=== PATIENT | male | born 1995 | race Caucasian/White ===

== ENCOUNTER 2016-10-17 12:54 | Emergency (ER) | payer SELFPAY ==
[2016-10-17 13:53] LABS: Hemoglobin 17.7 gm/dL (13.5-18.0); Mean Cell Volume 85.1 fl (78-100); Mean Corpuscular Hemoglobin 30.7 pg (27-31); Mean Corpuscular Hgb Conc 36.1 g/dl (32-36); Mean Platelet Volume 9.2 fl (6.0-9.5); Neutrophil # 10.3 K/mm3 (1.3-6.0); Neutrophil % 86.5 % (42-75.0); Platelet Count 304 K/mm3 (150-450); Red Blood Count 5.76 M/mm3 (4.7-6.0); Red Cell Distribution Width 12.3 % (11.5-14.0); White Blood Count 11.9 K/mm3 (4.0-10.5)
[2016-10-17 14:04] LABS: BUN/Creatinine Ratio 7.7 (9.0-21.6); Bilirubin, Total 0.9 mg/dL (0.0-1.1); Ca. Corrected For Albumin 8.8 mg/dL (8.4-10.2); Calcium * 10.7 mg/dL (7.9-10.9); Carbon Dioxide 23.1 mmol/L (24-32.6); Potassium 5.1 mmol/L (3.4-4.6); Total Protein 10.6 gm/dL (6.2-8.2)
[2016-10-17] MEDS ORDERED: NORMAL SALINE 1,000 ML IV ONE ×4 (14:22→15:39)
[2016-10-17] MEDS ORDERED: ONDANSETRON HCL/PF 2 MG/ML VIAL IV ONE (14:26)
--- NOTE | 2016-10-17 14:34 | ERNOTE ---
Medical Problem HPI - Narrative Date of Service: 10/17/16 - General Chief Complaint: General Assessment Time Seen by Provider: 10/17/16 14:22 Source: patient, family, RN notes reviewed Exam Limitations: no limitations - Immun/Allergies/Home Medications Immunizations: IMMUNIZATION HX Immunizations Up to Date No History of Influenza Vaccine No Hx Pneumococcal Vaccination No Allergies/Adverse Reactions: Allergies No Known Allergies Allergy (Unverified 10/17/16 13:17) Home Medications: HOME MEDICATIONS NK [No Home Medication] 10/17/16 [Last Taken Unknown] - History of Present History Narrative: 21 y/o male ambulatory to the ED for vomiting and weakness. 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 He then began having nausea and vomiting last evening. He has continued to vomit throughout the day today. He reports passing out at work yesterday. He is also having generalized muscle aches. Date (Duration): 10/16/16 Review of Systems - Review of Systems Constitutional: Present: fatigue, malaise. Absent: fever, chills EYE: Present: no symptoms reported ENT: Present: no symptoms reported Respiratory: Absent: shortness of breath, cough Cardiology: Present: syncope. Absent: chest pain Gastrointestinal/Abdominal: Present: nausea, vomiting. Absent: diarrhea, constipation Genitourinary: Present: decreased urinary output. Absent: dysuria, hematuria Musculoskeletal: Present: muscle pain. Absent: joint pain Skin: Absent: rash, lesions, change in color Neurological: Present: dizziness/light-headedness. Absent: headache Endocrine: Present: no symptoms reported Hematologic/Lymphatic: Present: no symptoms reported Psych: Present: no symptoms reported - Patient's Past Medical History Patient History - Medical: No pertinent hx Patient History - Cardiac/Respiratory: No pertinent hx Patient History - Cancer: No Hx of Cancer Patient History - Surgical Procedures: No surgical history Patient History - Other: None - Social History Living Situations: home Abuse History: No History of abuse Psych History: No pertinent hx Smoking Status: Current every day smoker Have you smoked in the past 12 months: Yes Do you dip or chew tobacco: No Alcohol Use: none Drug Use: marijuana - Immunizations Immunizations Up to Date: No Hx Pneumococcal Vaccination: No History of Influenza Vaccine: No Physical Exam - Physical Exam General Appearance: Present: wd/wn, alert, moderate distress Eye Exam: Normal inspection: bilateral, PERRL: bilateral Ears, Nose, Throat: Present: normal ENT inspection Neck: Present: normal inspection, nontender, supple, full range of motion Respiratory: Present: no respiratory distress, normal breath sounds, no accessory muscle use, lungs clear Cardiovascular/Chest: Present: no murmur, normal peripheral pulses, tachycardia Gastrointestinal/Abdominal: Present: normal bowel sounds, nondistended, soft, tenderness - diffuse Back Exam: Present: normal range of motion, no vertebral tenderness, CVA tenderness (R). Absent: CVA tenderness (L) Extremity Exam: Present: normal inspection, normal range of motion, no edema Neurological Exam: Present: alert, oriented, normal mood/affect, no motor/ sensory deficits Skin Exam: Present: normal color, warm/dry ED Progress - Results and Orders Patient's Lab Results:: I have reviewed the patient's lab results. - Vital Signs Patient's Vital Signs:: I have reviewed the patient's vital signs. Vital Signs: Vital Signs 10/17/16 13:12 Temperature 36.7 C Pulse Rate 105 H Respiratory 18 Rate Blood Pressure 134/85 O2 Sat by Pulse 100 Oximetry - Progress/Reassessment Chief Complaint: General Assessment Progress:: Improved Plan - Plan Plan: Creatinine improved after 4 liters of IV NS. No further vomiting. Patient is up and about in room. Verbalizes feeling much better. Has voided without difficulty. Patient's PCP is in [place], states he will f/u there on Thursday to recheck his labs but if unable to get an appointment he will return here. Departure - Departure Clinical Impression: Dehydration, Acute kidney injury Disposition: Home Follow Up Needed Condition: Stable Instructions: Dehydration, Adult, [id number], Form - Excuse from Work, School , or Physical Activity Additional Instructions: Push fluids Rest and stay out of the heat this Return for vomiting, if you are not urinating, or for other concerns Follow up with your doctor on Thursday, or return here to recheck your labs
[2016-10-17] MEDS ORDERED: ONDANSETRON HCL/PF 2 MG/ML VIAL ONE (14:39)
[2016-10-17] MEDS ORDERED: ACETAMINOPHEN 325 MG TABLET PO ONE (15:48)
[2016-10-17] MEDS ORDERED: ACETAMINOPHEN 325 MG TABLET ONE (15:50)
[2016-10-17 16:36] VITALS: BP 125/75
[2016-10-17 17:36] LABS: Anion Gap 17.7 mmol/L (6.8-13.8); BUN/Creatinine Ratio 10.6 (9.0-21.6); Calcium * 8.6 mg/dL (7.9-10.9); Carbon Dioxide 22.9 mmol/L (24-32.6); Estimated Creat Clear 43.7; Potassium 4.6 mmol/L (3.4-4.6)
== END 2016-10-17 17:59 | disposition home or self-care (01) ==
LOC: ER 12:54
DX: E86.0 Dehydration (principal); N17.9 Acute kidney failure, unspecified; Z72.0 Tobacco use
CPT/HCPCS: 36415; 80048; 80053; 82272; 85025; 96360; 96361; 99284; J2405